=== PATIENT | male | born 1955 | race Caucasian/White ===

== ENCOUNTER 2022-08-16 12:25 | Emergency (ER) | payer MEDICARE, BC, SELFPAY ==
[2022-08-16 12:32] VITALS: BP 133/113; PULSE 97; RESP 15; TEMP 36.4; O2SAT 95; BMI 32.5
--- NOTE | 2022-08-16 15:20 | DI.RAD.S_ITS ---
PROCEDURE: XR RIBS LT MIN 3V W CXR1V INDICATIONS: fall TECHNIQUE: 3 views of the left ribs were acquired, along with a single view chest. COMPARISON: None. FINDINGS: Surgical changes and devices: None. Bones and chest wall: No fractures or dislocations. No suspicious bony lesions. Overlying soft tissues appear unremarkable. Lungs and pleura: No pleural effusions or pneumothorax. Lungs appear clear. Mediastinum: Mediastinal contours appear normal. Heart size is normal. IMPRESSION: No visualized acute fracture or dislocation. However, if clinical concern and/or pain persist, short interval imaging followup in 7-10 days is recommended, as occult injury cannot be definitively excluded. Dictated by: Doris Meléndez M.D. on 08/16/2022 at 16:02 Approved by: Doris Meléndez M.D. on 08/16/2022 at 16:03
--- NOTE | 2022-08-16 15:24 | DI.RAD.S_ITS ---
PROCEDURE: XR TIBIA FUBULA RT 2V INDICATIONS: pain and swelling TECHNIQUE: 2 views of the tibia and fibula were acquired. COMPARISON: None. FINDINGS: Bones: No fractures or dislocations. No suspicious bony lesions. Soft tissues: No suspicious soft tissue calcifications or masses. IMPRESSION: No visualized acute fracture or dislocation. However, if clinical concern and/or pain persist, short interval imaging followup in 7-10 days is recommended, as occult injury cannot be definitively excluded. Dictated by: Doris Meléndez M.D. on 08/16/2022 at 15:54 Approved by: Doris Meléndez M.D. on 08/16/2022 at 16:02
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
[2022-08-16] MEDS: TET,DIPH,PERTUSS(ACELL),VAC/PF 0.5 ML SYRINGE IM (15:28)
[2022-08-16] MEDS: LIDOCAINE 1% 20 ML INJ (17:24)
--- NOTE | 2022-08-16 18:14 | PC.NURSE ---
Sutures placed by ATIYA Segura.
== END 2022-08-16 18:16 | disposition home or self-care (01) ==
PROVIDERS: Emergency Provider Physician Assistant
DX: S91.012A Laceration without foreign body, left ankle, initial encounter (principal); R07.81 Pleurodynia; M79.604 Pain in right leg; W01.0XXA Fall on same level from slipping, tripping and stumbling without subsequent striking against object, initial encounter; Z23 Encounter for immunization
CPT/HCPCS: 12001; 71101; 73590; 90471; 99283; 99284; 90715

== ENCOUNTER 2022-08-22 13:57 | Emergency (ER) | payer MEDICARE, BC, SELFPAY ==
[2022-08-22 14:16] VITALS: BP 143/90; PULSE 87; RESP 18; TEMP 36.3; O2SAT 95; BMI 32.5
--- NOTE | 2022-08-22 14:39 | ED_ITS ---
HPI - Recheck/Abnormal Lab/Rx <ROBBIE Chino - Last Filed: 08/22/22 14:43> General Chief Complaint: Recheck/Abnormal Lab/Rx Stated Complaint: REMOVE STITCHES LT. LEG Time Seen by Provider: 08/22/22 14:24 Source: patient Mode of arrival: Ambulatory History of Present Illness HPI narrative: This is a pleasant 66-year-old male who presents to the emergency department after a fall he had 7 days ago when he tripped over the threshold to the shower falling forward causing laceration to his left lower extremity which was repaired with sutures on 08/16/2022. Patient endorses he still has ongoing left-sided rib pain but did not have any fracture on x-ray that day. Patient denies any redness or streaking up his leg, notes that he has a black scab and sutures present. He denies any significant pain, states that his bruises are starting to change colors, denies any dependent edema, chest pain, palpitations or difficulty breathing. He is here for suture removal. Related Data Previous Rx's Medication Instructions Recorded mupirocin 2 % topical ointment 1 applic topical DAILY #15 grams 08/22/22 Allergies Allergy/AdvReac Type Severity Reaction Status Date / Time No Known Drug Allergies Allergy Verified 08/16/22 12:32 Review of Systems <ROBBIE Chino - Last Filed: 08/22/22 14:43> Review of Systems Narrative: Review of systems is negative for acute abnormalities unless otherwise noted in HPI Patient History <ROBBIE Chino - Last Filed: 08/22/22 14:43> Social History Smoking Status: Unknown if ever smoked Smoking Status: Unknown if ever smoked alcohol intake frequency: holidays/special occasions only Substance Use Type: does not use Exam <ROBBIE Chino - Last Filed: 08/22/22 14:43> Narrative Exam Narrative: Reviewed vitals signs and nursing notes. General: cooperative, comfortable, in no acute distress, well groomed MSK: moves all extremities, neurovascularly intact, no weakness, normal tone Skin: brisk capillary refill, without pallor or erythema, healing scab to right and left lower extremities, 3 sutures present to left lower extremity, scab is dry, very dark/black in color. Mild erythema surrounding the wound without streaking, purulence discharge, fluctuance, or significant erythema. Neuro: normal speech and cognition, A&O x3, ambulatory, clear speech Psych: mental status is grossly normal, congruent mood, normal affect, pleasant and cooperative Initial Vital Signs Initial Vital Signs: Vital Signs Temperature 97.4 F L 08/22/22 14:16 Pulse Rate 87 08/22/22 14:16 Respiratory Rate 18 08/22/22 14:16 Blood Pressure 143/90 H 08/22/22 14:16 Pulse Oximetry 95 08/22/22 14:16 Oxygen Delivery Method 08/22/22 14:16 <Cora Díaz DO - Last Filed: 08/28/22 04:43> Initial Vital Signs Initial Vital Signs: Vital Signs Temperature 97.4 F L 08/22/22 14:16 Pulse Rate 87 08/22/22 14:16 Respiratory Rate 18 08/22/22 14:16 Blood Pressure 143/90 H 08/22/22 14:16 Pulse Oximetry 95 08/22/22 14:16 Oxygen Delivery Method 08/22/22 14:16 Course <ROBBIE Chino - Last Filed: 08/22/22 14:43> Orders Ordered: Discontinued Medications Bacitracin (Bacitracin Oint 0.9 Gm Pckt) 1 applic TOP NOW ONE Stop: 08/22/22 14:33 Last Admin: 08/22/22 14:51 Dose: 1 applic Documented By: CTS Vital Signs Vital signs: Vital Signs - 8 hr 08/22/22 14:16 Temperature 97.4 F L Pulse Rate 87 Respiratory Rate 18 Blood Pressure 143/90 H Pulse Oximetry 95 Oxygen Delivery Method Room Air <Cora Díaz DO - Last Filed: 08/28/22 04:43> Orders Ordered: Discontinued Medications Bacitracin (Bacitracin Oint 0.9 Gm Pckt) 1 applic TOP NOW ONE Stop: 08/22/22 14:33 Last Admin: 08/22/22 14:51 Dose: 1 applic Documented By: CTS Vital Signs Vital signs: Vital Signs - 8 hr 08/22/22 14:16 Temperature 97.4 F L Pulse Rate 87 Respiratory Rate 18 Blood Pressure 143/90 H Pulse Oximetry 95 Oxygen Delivery Method Room Air [facility] - Recheck/Abnormal Lab/Rx <Camille Lewis, [facility] - Last Filed: 08/22/22 14:43> [facility] Narrative Medical decision making narrative: This is a pleasant 66-year-old male who presents to the emergency department for suture removal after suture placement to his right lower extremity 7 days ago. Patient had mild erythema, dark almost black colored scab covering the wound, his sutures removed after a warm soak of saline with iodine. Bacitracin and Band-Aids were applied to bilateral lower extremity wounds. Encourage patient to use topical mupirocin, he denies history of diabetes, encouraged to return to the emergency department for worsening signs of infection, encouraged to wash his wounds morning and night and use an adhesive bandage with antibiotic ointment daily. Prescribed for him mupirocin and encouraged him to follow-up as needed with his primary doctor. Patient is appropriate and amenable to discharge home. Vital signs are stable on repeat examination is unremarkable. Patient has been informed of results. Patient has been given strict return to ER precautions for any new or worsening symptoms. Patient understands to follow up closely with outpatient providers as instructed. Patient understands plan and agrees to discharge home. All questions and concerns answered at this time. Discharge Plan Departure Patient Disposition: Home Clinical Impression: Encounter for removal of sutures Instructions: DI for Suture Removal Activity Restrictions/Additional Instructions: *You have been diagnosed with a wound that was repaired with sutures, it is now healing with a scab covering the wound. I would prefer this scab to be covered with antibiotic ointment and have a dressing change each day. A Band-Aid should be sufficient, please remove it and when you shower gently wash the area and apply antibiotic ointment again when you get out. If you notice any swelling, redness or streaking up your leg, please come back for another evaluation. I hope this heals as expected, thank you for your patience today. Sorry for your rib pain, please remember to take deep breaths and cough as needed to keep your lungs clear. *What to do: *Please continue to take your regular medications as directed. [x ] New medication prescriptions sent to your pharmacy: [ [facility]] [ ] New medication written as a paper prescription [ ] No new medications given *Please follow up with your primary care provider in 2-3 days, call for an appointment. Let them know you were seen in the Emergency Department and that we asked that you be seen for follow-up. We will electronically transmit a record of today's note if your PCP is in our system *If you do not have a primary care provider please contact [phone] to [facility] with one of the [facility] primary care providers. *Return to Emergency Department if you should have any new, worsening, or concerning symptoms, such as [fever greater than 101F, chills, worsening pain, persistent vomiting or other bothersome symptoms]. Prescriptions: New mupirocin 2 % ointment 1 applic topical DAILY Qty: 15 0RF Visit Report Forms: Patient Portal/API <Cora Díaz DO - Last Filed: 08/28/22 04:43> Cosign ED Attending Elia Attestation: I was immediately available in the department for consultation. Documentation has been reviewed.
[2022-08-22] MEDS: BACITRACIN OINT 0.9 GM PCKT 1 APPLIC TOP (14:51)
== END 2022-08-22 14:39 | disposition home or self-care (01) ==
PROVIDERS: Emergency Provider Nurse Practitioner Critical Care Medicine
DX: Z48.02 Encounter for removal of sutures (principal)
CPT/HCPCS: 99281; 99282

== ENCOUNTER → 2022-09-07 07:14 | Outpatient (CLI) | payer MEDICARE, BC, SELFPAY ==
[2022-09-07 09:55] LABS: Prostate Specific Antigen 1.52 ng/mL (0.10-4.00)
== END ==
PROVIDERS: PCP Nurse Practitioner Family; Referring Provider Nurse Practitioner Family; Visit Provider Nurse Practitioner Family
DX: R39.15 Urgency of urination (principal); R35.0 Frequency of micturition
CPT/HCPCS: 36415; 84153

== ENCOUNTER → 2023-09-25 07:29 | Outpatient (CLI) | payer MEDICARE, BC, SELFPAY ==
--- NOTE | 2023-09-26 19:45 | DI.NM.S_ITS ---
DATE OF SERVICE: 09/25/2023 STUDY: Pharmacological Perfusion Study DATE OF STUDY: September 25, 2023. INDICATIONS: Shortness of breath, coronary artery calcification. RADIOPHARMACEUTICAL: 25.4 millicurie technetium-99m Myoview IV was injected at stress and 25.6 millicurie technetium-99m Myoview IV was injected at rest. CARDIAC STRESS: The patient underwent IV Lexiscan perfusion study under the supervision of an attending staff as per standard Lexiscan protocol. The patient remained hemodynamically stable. Resting blood pressure 120/98. Baseline rhythm sinus. During stress, no convincing new ischemic changes or significant arrhythmias seen. No significant symptoms reported. RAW DATA: Raw data there is increased subdiaphragmatic activity. The patient's weight is 225 pounds. GATED STUDY: Resting LV ejection fraction 72 and stress LV ejection fraction 73% without any obvious significant wall motion abnormalities. Resting end-diastolic volume 93 mL. TID ratio 1.28. This is a pharmacological perfusion study. Lung/heart ratio 0.35, which is within normal limits. MYOCARDIAL PERFUSION SCAN: Stress supine, resting supine and stress prone images were compared to each other. Stress supine and resting supine images revealed small size, mildly decreased perfusion of distal inferior wall. During stress prone, distal inferior wall defect improved. However, there is mildly decreased perfusion of inferior apex. No reversible ischemia. Summed stress score zero and summed rest score zero with some difference score zero. CONCLUSION: There is no reversible ischemia. Likely there is a shifting diaphragmatic tissue attenuation artifact. Summed difference score zero. Summed stress as well as resting score zero. Preserved left ventricular function. Overall, low-risk myocardial perfusion scan. Leighton Mcmahan - PATEL/kiana/ doc#: [id number]/job#: [id number] dd: 09/26/2023 16:06:00 dt: 09/26/2023 19:35:00 DICTATING MD/COPIES TO: Gracie Rubio MD COPIES MNE: NELL;
== END ==
PROVIDERS: PCP Nurse Practitioner Family; Referring Provider Internal Medicine Cardiovascular Disease; Visit Provider Internal Medicine Cardiovascular Disease
DX: I25.10 Atherosclerotic heart disease of native coronary artery without angina pectoris (principal); R06.02 Shortness of breath; I25.84 Coronary atherosclerosis due to calcified coronary lesion
CPT/HCPCS: 78452; 93017; A9502; J2785

== ENCOUNTER 2023-11-21 02:02 | Emergency (ER) | payer MEDICARE, BC, SELFPAY ==
[2023-11-21] VITALS (13 sets, daily range): BP systolic 149–192; BP diastolic 76–119; PULSE 102–115; RESP 16–20; TEMP 36.9–37.1; O2SAT 90–94; BMI 34.0
--- NOTE | 2023-11-21 02:25 | DI.US.S_ITS ---
PROCEDURE: US ABDOMEN LIMITED INDICATIONS: Right upper quadrant pain possible cholecystitis TECHNIQUE: Real-time scanning was performed of the abdominal and retroperitoneal organs, with image documentation. COMPARISON: None. FINDINGS: Liver: Liver measures 16 cm in length. Within normal limits. Echogenicity is within normal limits echotexture. Gallbladder: Nondilated. No stones or sludge. Normal gallbladder wall thickness. No pericholecystic fluid. Negative sonographic Lizama's sign. Biliary ducts: Intrahepatic bile ducts are non-dilated. Extrahepatic bile duct caliber measures 5 mm. Normal is 6-7 mm or less in diameter, or 10 mm or less post-cholecystectomy. Pancreas: Not well seen due to bowel gas. IMPRESSION: No acute cholecystitis. No gallstones. No significant discrepancy with the overnight preliminary interpretation. Dictated by: Juan J Goldman M.D. on 11/21/2023 at 8:38 Approved by: Juan J Goldman M.D. on 11/21/2023 at 8:41
--- NOTE | 2023-11-21 02:27 | ED.ABDPAIN ---
HPI - Abdominal Pain General Chief Complaint: Abdominal Pain Stated Complaint: abd pain Time Seen by Provider: 11/21/23 02:08 Source: patient and family Mode of arrival: Family Vehicle History of Present Illness HPI narrative: This is a 68-year-old man who arrives by private vehicle. accompanies him and contributes to history. ED reporting 24 hours of right flank and right upper quadrant abdominal pain. It is associated with nausea it has not been associated with vomiting he has not had fevers he has not had dysuria. No diarrhea says he has not had a bowel movement in a couple of days. The patient has not had similar symptoms in the past. He has had no prior abdominal surgeries. He does not note symptoms worse with eating. Has not had a kidney stone in the past. Related Data Previous Rx's Medication Instructions Recorded mupirocin 2 % topical ointment 1 applic topical DAILY #15 grams 08/22/22 hydrocodone 5 mg-acetaminophen 325 1 tab PO Q4-6H PRN pain #14 tabs 11/21/23 mg tablet Allergies Allergy/AdvReac Type Severity Reaction Status Date / Time No Known Drug Allergies Allergy Verified 11/21/23 02:31 Patient History Social History Smoking Status: Unknown if ever smoked Smoking Status: Unknown if ever smoked alcohol intake frequency: holidays/special occasions only Substance Use Type: marijuana, painkillers and prescription drug Exam Narrative Exam Narrative: Alert, no acute distress HEENT: Normocephalic, atraumaitic moist mucus membranes Neck: Supple no midline tenderness Lungs: Clear to ascultaion, no respiratory distress Heart: Regular rhythm and rate no murmur Abdomen: Normal bowel sounds, soft, right upper quadrant is tender no guarding no rebound no hepatomegaly, no CVAT Extremeties: Full range of motion no deformity Neuro: Alert and oriented, normal speech moves x4 Initial Vital Signs Initial Vital Signs: Vital Signs Temperature 98.8 F 11/21/23 02:06 Pulse Rate 112 H 11/21/23 02:06 Respiratory Rate 20 11/21/23 02:06 Blood Pressure 154/101 H 11/21/23 02:06 Pulse Oximetry 94 11/21/23 02:06 Oxygen Delivery Method Room Air 11/21/23 02:06 Course Orders Ordered: ED Orders 11/21/23 02:25 US abdomen limited Stat 11/21/23 02:40 CBC Auto Diff [Complete Blood Count AUTO DIFF] Stat CMP [Comprehensive Metabolic Panel] Stat Lipase Stat 11/21/23 03:20 CT abdomen pelvis w con Stat 11/21/23 04:15 Urinalysis and Microscopic Stat Discontinued Medications Hydromorphone HCl (Hydromorphone 1 Mg Inj) 1 mg IV NOW ONE Stop: 11/21/23 02:48 Last Admin: 11/21/23 02:57 Dose: 1 mg Documented By: DA Hydromorphone HCl (Hydromorphone 0.5 Mg Inj) 0.5 mg IV NOW ONE Stop: 11/21/23 04:41 Last Admin: 11/21/23 04:47 Dose: 0.5 mg Documented By: JERO Vital Signs Vital signs: Vital Signs - 8 hr 11/21/23 02:06 11/21/23 02:17 11/21/23 02:30 Temperature 98.8 F Pulse Rate 112 H 115 H 109 H Respiratory Rate 20 Blood Pressure 154/101 H Pulse Oximetry 94 93 91 Oxygen Delivery Method Room Air Room Air Room Air Oxygen Flow Rate 11/21/23 02:31 11/21/23 02:31 11/21/23 03:00 Temperature Pulse Rate 113 H 108 H Respiratory Rate Blood Pressure 192/119 H Pulse Oximetry 91 92 Oxygen Delivery Method Room Air Room Air Oxygen Flow Rate 11/21/23 03:00 11/21/23 03:30 11/21/23 03:30 Temperature Pulse Rate 103 H Respiratory Rate Blood Pressure 165/76 H 149/89 H Pulse Oximetry 90 L Oxygen Delivery Method Room Air Oxygen Flow Rate 11/21/23 03:48 11/21/23 03:48 11/21/23 04:00 Temperature Pulse Rate 106 H 105 H Respiratory Rate Blood Pressure 161/94 H Pulse Oximetry 92 90 L Oxygen Delivery Method Nasal Cannula Nasal Cannula Oxygen Flow Rate 3 3 11/21/23 04:00 11/21/23 04:30 11/21/23 04:30 Temperature Pulse Rate 104 H Respiratory Rate Blood Pressure 151/81 H 159/97 H Pulse Oximetry 91 Oxygen Delivery Method Nasal Cannula Oxygen Flow Rate 3 11/21/23 05:00 11/21/23 05:00 Temperature Pulse Rate 102 H Respiratory Rate Blood Pressure 170/102 H Pulse Oximetry 90 L Oxygen Delivery Method Nasal Cannula Oxygen Flow Rate 3 MDM - Abdominal Pain Lab Data Lab results narrative: CBC with differential and CMP are unremarkable, lipase is normal, urinalysis remarkable for ketones otherwise unremarkable 11/21/23 02:40 11/21/23 02:40 Labs: Lab Results 11/21/23 11/21/23 Range/Units 02:40 04:15 WBC 12.2 H (4.5-11.0) X10^3/uL RBC 5.00 (4.5-5.9) X10^6/uL Hgb 15.9 (13.5-17.5) g/dL Hct 46.6 (41-53) % MCV 93.3 (80-100) fL MCH 31.9 (26-34) PG MCHC 34.2 (30-36) % RDW 13.6 (11.6-14.8) % Plt Count 355 (150-400) X10^3/uL Neut % (Auto) 78.1 H (50-75) % Lymph % (Auto) 12.3 L (25-40) % Thomas % (Auto) 7.4 (3-14) % Eos % (Auto) 1.5 L (2-4) % Baso % (Auto) 0.7 (0-2) % Neut # (Auto) 9600 H (4442-1806) /uL Lymph # (Auto) 1500 (6821-2952) /uL Thomas # (Auto) 900 (0-900) /uL Eos # (Auto) 200 (0-450) /uL Baso # (Auto) 100 (0-100) /uL Sodium 134 L (137-145) mmol/L Potassium 4.2 (3.4-5.1) mmol/L Chloride 97 L (98-107) mmol/L Carbon Dioxide 24 (22-32) mmol/L BUN 16 (9-20) mg/dL Creatinine 0.83 (0.66-1.25) mg/dL Estimated GFR > 60 (>60) mL/min BUN/Creatinine Ratio 19.3 (6-22) Glucose 130 H (80-110) mg/dL Calcium 9.6 (8.4-10.2) mg/dL Total Bilirubin 0.9 (0.2-1.3) mg/dL AST 34 (17-59) IU/L ALT 28 (<50) IU/L Alkaline Phosphatase 96 (38-126) U/L Total Protein 7.6 (6.3-8.2) g/dL Albumin 4.3 (3.5-5.0) g/dL Globulin 3.3 (1.7-4.1) g/dL Albumin/Globulin Ratio 1.3 (1.0-2.8) Lipase 29 (23-300) U/L Urine Color Yellow Urine Appearance Clear Urine pH 7.0 (4.5-8.0) Ur Specific [place]ox 1.010 (1.000-1.035) Urine Protein Negative (Negative) Urine Glucose (UA) Negative (Negative) g/dL Urine Ketones 2+ H (NEGATIVE) Urine Occult Blood Negative (Negative) Urine Nitrate Negative (Negative) Urine Bilirubin Negative (NEGATIVE) Urine Urobilinogen 0.2 (0.2) E.U./dL Ur Leukocyte Esterase Negative (NEGATIVE) Urine RBC None seen (0-5/HPF) Urine WBC None seen (0-5/HPF) Ur Squamous Epith Cells None seen (0-5/HPF) Urine Bacteria None seen (None) Ur Culture Indicated? Cult not indicated Vol Urine Centrifuged 10ml (spun) Imaging Data US - abdomen: Radiologist's Impression: Hepatomegaly, no sonographic findings of acute cholecystitis CT scan - abdomen/pelvis: My Impression: On my independent review, no evidence of bowel obstruction, no hydronephrosis or ureteral stone kidneys enhance symmetrically no acute finding Radiologist's Impression: The night coverage radiology interpretation? diffuse circumferential wall thickening of the duodenal wall with adjacent inflammatory changes likely related to duodenitis. No evidence of diverticulitis bowel obstruction, obstructive uropathy or acute appendicitis. Incidental findings as detailed. ? Incidental findings mentioned included umbilical hernia containing fat bilateral dilatation of the iliac arteries and arterial sclerosis MDM Narrative Medical decision making narrative: 68-year-old man presenting with right upper quadrant and right flank abdominal pain. Differential diagnosis included but is not limited to cholecystitis, biliary colic, pyelonephritis, renal colic, bowel obstruction, pancreatitis. Workup supports none of these. CT shows evidence of duodenitis. Patient appears nontoxic anything nonspecific duodenitis can be treated symptomatically with primary care follow up. I did recommend scheduled NSAIDs for a few days, he already has a prescription for [place] that he can use as needed for more severe pain. He was advised to return if getting worse in his to follow up with his primary care provider soon. Discharge Plan Departure Patient Disposition: Home Clinical Impression: Duodenitis Abdominal pain Qualifiers: Abdominal location: right upper quadrant Qualified Code(s): R10.11 - Right upper quadrant pain Activity Restrictions/Additional Instructions: Emergency department workup today is reassuring. It does not appear that you have a cause for abdominal pain requiring hospitalization or additional testing. CT scan shows some inflammatory changes in your duodenum determine be duodenitis, this is a specific part of your intestine. Typically this type of issue is self-limited and resolve with time. I recommend you use ibuprofen on a regular basis for a couple of days until the pain improves and then as needed. Ibuprofen (motrin or advil) should be dosed at 600mg (3 non-prescription tablets) every 6 hours. Taking this on a scheduled basis is more effective. It is a good idea to take this with food. Use this with caution if you have a history of bleeding ulcers or renal disease. You can use the previously prescribed [place] as needed for pain, I recommend you use docusate sodium or Colace as a stool softener to help prevent constipation. Get adequate liquids, bowel rest with a clear liquid diet initially may help you feel better sooner. Follow up soon with your primary care provider. If you are having increasing pain frequent vomiting fevers or other acute symptoms recheck in the emergency department. Prescriptions: New hydrocodone-acetaminophen 5-325 mg tablet 1 tab PO Q4-6H PRN (Reason: pain) Qty: 14 0RF No Action mupirocin 2 % ointment 1 applic topical DAILY Qty: 15 0RF Referrals: Michelle Birch DNP, [employer] [facility] [Primary Care Provider] - Stand Alone Forms: Patient Portal/API
[2023-11-21] MEDS: HYDROMORPHONE 1 MG INJ IV (02:57)
[2023-11-21 02:58] LABS: Add Manual Diff / Slide Review NO; Basophils Absolute Auto 100 /uL (0-100); Basophils Percent Auto 0.7 % (0-2); Eosinophils Absolute Auto 200 /uL (0-450); Eosinophils Percent Auto 1.5 % (2-4); Hematocrit 46.6 % (41-53); Hemoglobin 15.9 g/dL (13.5-17.5); Lymphocytes Absolute Auto 1500 /uL (1100-4500); Lymphocytes Percent Auto 12.3 % (25-40); Mean Corpuscular HGB Conc 34.2 % (30-36); Mean Corpuscular Hemoglobin 31.9 PG (26-34); Mean Corpuscular Volume 93.3 fL (80-100); Monocytes Absolute Auto 900 /uL (0-900); Monocytes Percent Auto 7.4 % (3-14); Neutrophils Absolute Auto 9600 /uL (1500-7000); Neutrophils Percent Auto 78.1 % (50-75); Platelet Count 355 X10^3/uL (150-400); Red Cell Distribution Width 13.6 % (11.6-14.8); White Blood Cell Count 12.2 X10^3/uL (4.5-11.0)
[2023-11-21 03:08] LABS: Alanine Aminotransferase 28 IU/L (<50); Albumin 4.3 g/dL (3.5-5.0); Albumin Globulin Ratio 1.3 (1.0-2.8); Alkaline Phosphatase 96 U/L (38-126); Aspartate Aminotransferase 34 IU/L (17-59); BUN Creatinine Ratio 19.3 (6-22); Bilirubin Total 0.9 mg/dL (0.2-1.3); Blood Urea Nitrogen 16 mg/dL (9-20); Calcium 9.6 mg/dL (8.4-10.2); Carbon Dioxide 24 mmol/L (22-32); Chloride 97 mmol/L (98-107); Estimated Glomerular Filt Rate > 60 mL/min (>60); Globulin 3.3 g/dL (1.7-4.1); Glucose 130 mg/dL (80-110); HEMOLYSIS 42 (0-50); Lipase 29 U/L (23-300); Potassium 4.2 mmol/L (3.4-5.1); Sodium 134 mmol/L (137-145); Total Protein 7.6 g/dL (6.3-8.2)
--- NOTE | 2023-11-21 03:20 | DI.CT.S_ITS ---
PROCEDURE: CT ABDOMEN PELVIS W CON INDICATIONS: ruq and R flank pain TECHNIQUE: After the administration of intravenous contrast, axial sections acquired from the lung bases to the pubic symphysis. Coronal and sagittal reformats were performed. For radiation dose reduction, the following was used: automated exposure control, adjustment of mA and/or kV according to patient size. COMPARISON: None. FINDINGS: Image quality: Diagnostic. Lower Chest: No significant findings. ABDOMEN: Liver: No solid mass. Gallbladder: No radiopaque gallstones or wall thickening. Biliary ducts: No biliary dilation. Pancreas: No ductal dilation. Spleen: Size is within normal limits. Adrenal Glands: No adrenal nodules. Kidneys and Ureters: No hydronephrosis. No solid mass. No complex renal cystic lesion which requires follow up. Stomach and Bowel: Diverticulosis. No diverticulitis. Normal appendix. No small bowel obstruction. There is inflammatory change about the 2/3 portion of the duodenum, (). Stomach is within normal limits. Peritoneum: No abnormal intraperitoneal fluid. No free air. Ventral Wall: No hernia. Abdominal Nodes: No retroperitoneal or mesenteric adenopathy by size criteria. Vessels: Aorta and inferior vena cava are normal in size. PELVIS: Pelvic Organs: Prostatomegaly. Bladder: No stone. Pelvic Nodes: No enlarged lymph nodes. Miscellaneous: No inguinal hernias are seen. Bones: No aggressive osseous abnormality. IMPRESSION: 1. Inflammatory change about the duodenum consistent with duodenitis. Ulcer disease is in the differential diagnosis. 2. No pneumoperitoneum or abscess demonstrated. This report is concordant with the overnight preliminary interpretation. Dictated by: Juan J Goldman M.D. on 11/21/2023 at 8:41 Approved by: Juan J Goldman M.D. on 11/21/2023 at 8:47
[2023-11-21 04:25] LABS: Appearance Urine UA CLEAR; Bilirubin Urine UA NEGATIVE (NEGATIVE); Color Urine UA YELLOW; Glucose Urine UA NEGATIVE (Negative); Ketones Urine UA 2+ (NEGATIVE); Leukocyte Esterase Urine UA NEGATIVE (NEGATIVE); Nitrite Urine UA NEGATIVE (Negative); Occult Blood Urine UA NEGATIVE (Negative); Protein Urine UA NEGATIVE (Negative); Urine Volume 10mL (spun); Urobilinogen Urine UA 0.2 E.U./dL (0.2)
[2023-11-21 04:40] LABS: Bacteria Urine None Seen; Culture Indicated Urine Cult Not Indicated; RBC Urine None Seen (0-5/HPF); Squamous Epithelial Cell Urine None Seen (0-5/HPF); WBC Urine None Seen (0-5/HPF)
[2023-11-21] MEDS: HYDROMORPHONE 0.5 MG INJ IV (04:47)
== END 2023-11-21 05:37 | disposition home or self-care (01) ==
PROVIDERS: Emergency Provider Emergency Medicine; PCP Nurse Practitioner Family
DX: K29.80 Duodenitis without bleeding (principal); R10.11 Right upper quadrant pain
CPT/HCPCS: 36415; 74177; 76705; 80053; 81001; 83690; 85025; 96374; 96376; 99284; J1170; Q9967